=== PATIENT | female | born 1995 | race Caucasian/White ===

== ENCOUNTER 2017-12-30 22:02 | Inpatient (IN) | END 2018-01-02 16:05 | disposition home or self-care (01) | DRG 775 ==

== ENCOUNTER 2018-01-11 15:31 | Emergency (ER) | END 2018-01-11 20:38 | disposition home or self-care (01) ==

== ENCOUNTER 2018-01-27 20:31 | Emergency (ER) | END 2018-01-27 23:51 | disposition home or self-care (01) ==